=== PATIENT | female | born 1980 | race Two or more races ===

== ENCOUNTER 2020-06-02 09:35 | Emergency (ER) | payer SELFPAY ==
[~2020-06-02] VITALS: Ht 160 cm; Wt 63.5 kg
--- NOTE | 2020-06-02 09:37 | NUR ---
Gladys higuera in [facility] - 06/02/20 at 1035 by JEREMIAH Pt moved to room 3.
--- NOTE | 2020-06-02 09:40 | NUR ---
Pt was triaged and is sitting in a chair in the ER hallway because there are no ER beds available. [employer] at side.
--- NOTE | 2020-06-02 10:27 | NUR ---
Pt was moved to room 3. [employer] left, pt is calm and cooperative at this time.
--- NOTE | 2020-06-02 10:35 | NUR ---
I spoke with the pt in room 3. Pt stated "I just want my heroin". Pt denied any SI or HI. States she has no medical problems and no medication allergies.
[2020-06-02 10:41] LABS: *AMPHETAMINE, URINE NEGATIVE (NEGATIVE); *CANNABINOID, URINE POSITIVE (NEGATIVE); *COCCAINE, URINE NEGATIVE (NEGATIVE); *OPIATE, URINE NEGATIVE (NEGATIVE); *PHENCYCLIDINE SCREEN,URINE NEGATIVE (NEGATIVE)
--- NOTE | 2020-06-02 10:45 | NUR ---
Pt refused blood draw, ERMD notified.
--- NOTE | 2020-06-02 10:53 | NUR ---
Pt walked out of the back door of ER, pt was brought back to ER room 3 and security is at bedside.
[2020-06-02] MEDS ORDERED: OLANZAPINE 10 MG VIAL IM ONE ×2 (11:00→11:05)
[2020-06-02] MEDS ORDERED: LORAZEPAM 2 MG/1 ML VIAL IM ONE (11:00)
--- NOTE | 2020-06-02 11:00 | NUR ---
Pt trying to leave, very loud and combative and attempting to hit staff.
[2020-06-02] MEDS ORDERED: LORAZEPAM 2 MG/1 ML VIAL ONE (11:06)
--- NOTE | 2020-06-02 11:22 | NUR ---
PT VERY AGITATED, YELLING, VERY LOUD VOUCE, SCREAMING.
--- NOTE | 2020-06-02 11:40 | NUR ---
Pt sleeping at this time, placed on cont pulse ox, NAD noted.
--- NOTE | 2020-06-02 13:00 | NUR ---
Pt sleeping with NAD noted.
--- NOTE | 2020-06-02 14:06 | NUR ---
SW attempted to see patient, but patient is not arousable at this time. SW will attempt again later.
--- NOTE | 2020-06-02 15:00 | NUR ---
Pt sleeping with NAD noted.
--- NOTE | 2020-06-02 16:45 | NUR ---
cheese factory worker attempted to eval pt but pt still sedated. Pt arousable to touch, asked for another blanket. Food and water given but pt went back to sleep. No acute distress noted.
--- NOTE | 2020-06-02 17:02 | NUR ---
4:50pm: SW attempted to meet with this patient again. Patient opened her eyes when this SW stated patient's name, but then slowly closed them again. SW attempted to engage patient in a conversation, but patient observed to be lethargic and unable to engage in a conversation with this SW. Patient mumbled a few words, but they were unclear and when SW asked patient to repeat what she stated, patient did not attempt again. Unable to complete assessment at this time. Director Allyn Humphrey informed of above.
--- NOTE | 2020-06-02 19:02 | NUR ---
Report given to Aakash SHER.
--- NOTE | 2020-06-02 19:45 | NUR ---
MATTHEW CALLED AND STATED PT IS CLEAR AND DOESNOT NEED TO BE PET EVALUATED. THAT THE PT CAN GO HOME ASOON SHE STABLE . EMILY SHER NOTIFIED.
--- NOTE | 2020-06-02 22:15 | NUR ---
PT A/O X3 AMBULATING W/O DIFF/TOOK ALL BELONGINGS. REFUSED TO SIGN ACI/ ACI/RX X1 GIVEN WITH A HOMELESS PACKET. REFUSED TO SIGN HOMELESS PACKET FORM.
[2020-06-02 22:22] VITALS: BP 105/69
== END 2020-06-02 22:15 | disposition home or self-care (01) ==
LOC: ER 09:35
DX: R45.851 Suicidal ideations (principal); F11.10 Opioid abuse, uncomplicated; Z59.0 Homelessness; R45.1 Restlessness and agitation
CPT/HCPCS: 80307; 96372 ×2; 99285; J2060; A4663; J2358

== ENCOUNTER 2020-11-28 15:25 | Emergency (ER) | payer SELFPAY ==
[~2020-11-28] VITALS: Ht 160 cm; Wt 63.5 kg
[2020-11-28] MEDS ORDERED: LORAZEPAM 2 MG/1 ML VIAL IV ONE (15:45)
[2020-11-28] MEDS ORDERED: IV NS 1000 ML 1,000 ML IV ONE (15:45)
--- NOTE | 2020-11-28 15:54 | NUR ---
Patient refused CT Head w/o Contrast @ 15:52
--- NOTE | 2020-11-28 16:00 | NUR ---
PT AT BEDSIDE.
[2020-11-28 16:01] LABS: HEMATOCRIT 45.6 % (31.2-41.9); MEAN CORPUSCULAR HEMOGLOBIN 32.8 uug (24.7-32.8); MEAN CORPUSCULAR VOLUME 99.3 fL (75.5-95.3); PLATELET COUNT (AUTO) 264 K/uL (179-408)
[2020-11-28 16:10] LABS: ETHANOL < 3 MG/DL (0-0)
[2020-11-28] MEDS ORDERED: LORAZEPAM 2 MG/1 ML VIAL ONE (16:11)
[2020-11-28 16:15] LABS: ACETAMINOPHEN 6.9 ug/mL (10-30); ALANINE AMINOTRANSFERASE 19 U/L (14-59); ALKALINE PHOSPHATASE 64 U/L (50-136); ASPARTATE AMINOTRANSFERASE 12 U/L (15-37); BILIRUBIN,DIRECT 0.1 mg/dL (0.0-0.2); BILIRUBIN,TOTAL 0.4 mg/dL (0.2-1.0); CARBON DIOXIDE 21 mmol/L (21-32); CHLORIDE 106 mmol/L (98-107); CREATININE 0.7 mg/dL (0.6-1.3); GLUCOSE 82 mg/dL (74-106); POTASSIUM 3.6 mmol/L (3.5-5.1); UREA NITROGEN, BLOOD 17 mg/dL (7-18)
[2020-11-28 16:30] LABS: THYROID STIMULATING HORMONE 1.738 mIU/mL (0.358-3.740)
[2020-11-28 18:03] LABS: *BLOOD, URINE NEGATIVE (NEGATIVE); *CLARITY,URINE SLIGHTLY CLOUDY (CLEAR); *COLOR,URINE YELLOW (YELLOW); *KETONES,URINE 2+ (NEGATIVE); *UROBILINOGEN,URINE 0.2 E.U./dl (NORMAL); LEUKOCYTE ESTERASE ,URINE TRACE (NEGATIVE); NITRITE, URINE NEGATIVE (NEGATIVE); UGLUCOSE NEGATIVE (NEGATIVE)
[2020-11-28 18:08] LABS: *BILIRUBIN,URIN 1+ (NEGATIVE)
--- NOTE | 2020-11-28 18:09 | NUR ---
called katharina soto. pt yelling, talking bizzarre, trying to leave the room, pt in the room. pt says that this kind of behavior happened before when the pt "was under influence".
[2020-11-28 18:10] LABS: *AMPHETAMINE, URINE NEGATIVE (NEGATIVE); *CANNABINOID, URINE POSITIVE (NEGATIVE); *COCCAINE, URINE NEGATIVE (NEGATIVE); *OPIATE, URINE NEGATIVE (NEGATIVE); *PHENCYCLIDINE SCREEN,URINE NEGATIVE (NEGATIVE)
[2020-11-28 18:11] LABS: BACTERIA,URINE FEW /HPF (NONE SEEN); MUCUS,URINE MANY /LPF (0-FEW); SQUAMOUS EPITHELIAL CELL,UR MANY /HPF (NONE SEEN); URINE AMORPHOUS PHOSPHATES FEW /HPF; WBC,URINE 20-50 /HPF (0-3)
[2020-11-28] MEDS ORDERED: HALOPERIDOL LACTATE 5 MG/1 ML VIAL ONE (18:11)
[2020-11-28] MEDS ORDERED: HALOPERIDOL LACTATE 5 MG/1 ML VIAL IM ONE (18:15)
--- NOTE | 2020-11-28 18:21 | NUR ---
patient not stable to come down stairs @ 18:[address] w/o contrast
--- NOTE | 2020-11-28 19:14 | NUR ---
pt resting, no sign of distress at this point, pt at bedside.
--- NOTE | 2020-11-28 19:19 | NUR ---
Assumed care of patient. Patient off restraints at this time. She is asleep, no acute distress noted. Per ER MD, patient is holdable and will not be allowed to leave the facility. Pending Psych Eval.
--- NOTE | 2020-11-28 19:26 | NUR ---
Called Cardiology Consultant for a sitter, no sitter available. Called Security, stated that they can only do temporary standby and not for a prolonged period. Pt is sleeping, off restraints, no acute signs of distress, at bedside.
--- NOTE | 2020-11-28 19:26 | NUR ---
Spoke to warehouse sorter, notified her that this patient is a flight risk and security is only able to do a temporary stand by. shift supervisor melting states there is not sitter. States " the whole hospital is short". I notified her that earlier the facility needed to be locked down because of this patients behavioral outburst and that she is a risk to staff/self and is deemed holdable by the ER MD at this time. The warehouse sorter Clover Hernandez states " We are just going to have to call the police if she elopes". I notfied her of possible liability issues. Will awaiting further action by warehouse sorter.
--- NOTE | 2020-11-28 19:31 | NUR ---
Security requested for increased frequency of rounding , every 30-40 minutes.
--- NOTE | 2020-11-28 19:35 | NUR ---
Visitor Nazario states " I am her Ex , we just havent done the paperwork yet". Visitor states he is available to metal pickling equipment operator the patient in the event she is discharge. Please contact Nazario at [phone]
--- NOTE | 2020-11-28 20:08 | NUR ---
PATIENT UNABLE TO PROCEED WITH CT HEAD @ 20:08
--- NOTE | 2020-11-28 20:48 | NUR ---
Hold off CT Head w/o, wait for RN to call @ 20:45
--- NOTE | 2020-11-28 21:09 | NUR ---
Patient in bed, no acute distress noted. All patient needs attended and met. Call light is within reach.
--- NOTE | 2020-11-28 21:44 | NUR ---
Patient continues directly observed, no acute distress noted. Asleep at this time.
--- NOTE | 2020-11-28 21:55 | NUR ---
Patient asleep, VSS. All patient needs anticipate and met, blanket provided.
--- NOTE | 2020-11-28 22:40 | NUR ---
Patient in bed, resting. no acute distress noted.
--- NOTE | 2020-11-28 23:06 | NUR ---
Patient no longer indicated for CT scan at this time. Per Dr Meneses instructions, I notified radiology and orders will be cancelled.
--- NOTE | 2020-11-28 23:36 | NUR ---
Tallow Maker will pull sitter out due to low census at this time, staff will monitor patient.
--- NOTE | 2020-11-28 23:57 | NUR ---
Patient becoming increasingly agitated, screaming, kicking feet while in the bed. ER MD aware, orders noted and carried out. Observation continues.
--- NOTE | 2020-11-29 00:10 | NUR ---
Patient screaming, flailing in bed, kicking her legs and endorsing that she wants to elope from the facility. ER MD aware, awaiting for administered medication to take effect. Direct observation ongoing. Therapeutic environment implemented, quiet location.
--- NOTE | 2020-11-29 00:28 | NUR ---
Patient continues to scream at this time. VSS, patient is in no acute distress.
[2020-11-29] MEDS ORDERED: diphenhydrAMINE 50 MG/1 ML VIAL IV ONE ×2 (00:30)
[2020-11-29] MEDS ORDERED: LORAZEPAM 2 MG/1 ML VIAL IV ONE ×2 (00:30)
[2020-11-29] MEDS: HALOPERIDOL LACTATE 5 MG/1 ML VIAL IV ONE ×2 (00:45→05:14)
[2020-11-29] MEDS ORDERED: HALOPERIDOL LACTATE 5 MG/1 ML VIAL IV ONE ×2 (00:45)
--- NOTE | 2020-11-29 00:45 | NUR ---
Patient medicated with additional dose of Haldol due to patient exhibiting agitated behavior, screaming, kicking feet, attempting to get out of bed. Patient was provided with water and offered food, a food tray was placed at bedside. Direct observation ongoing. Therapeutic environment in place, verbal de-escalation attempted without effect.
[2020-11-29] MEDS ORDERED: HALOPERIDOL LACTATE 5 MG/1 ML VIAL ONE ×3 (00:47→05:14)
--- NOTE | 2020-11-29 00:47 | NUR ---
Patient noted in NSR on cafeteria monitor, no QT abnormalities/changes on cardiac strip.
--- NOTE | 2020-11-29 01:06 | NUR ---
Patient removed her pulse ox/motor equipment captain. Pulse ox/motor equipment captain replaced.
--- NOTE | 2020-11-29 01:34 | NUR ---
Patient in bed, no acute distress. Resting in bed, respirations even and unlabored. no cardiovascular distress. NSR on metal fabricating supervisor. Sao2 @98%
--- NOTE | 2020-11-29 02:00 | NUR ---
Patient remains in bed, offered assistance to restroom but it was denies by the patient. Patient given water at this time. She is currently calm, but has bouts of screaming and kicking/flailing in bed.
--- NOTE | 2020-11-29 02:30 | NUR ---
Patient in bed, no acute distress noted. All patient needs attended and met. Call light is within reach. VSS
--- NOTE | 2020-11-29 03:21 | NUR ---
Patient resting in bed, no acute distress noted. Respirations even and unlabored. No cardiovascular distress noted. All patient needs attended and met. Call light is within reach. Direct observation ongoing. Patient denies SI/HI/AH/VH at this time.
[2020-11-29] MEDS ORDERED: diphenhydrAMINE 50 MG/1 ML VIAL ONE ×2 (05:14)
--- NOTE | 2020-11-29 05:14 | NUR ---
Patient is kicking in bed, screaming, agitated. Attempting to remove IV, removed compressor operator portable. ER MD aware, PRN to be given.
[2020-11-29] MEDS ORDERED: LORAZEPAM 2 MG/1 ML VIAL ONE ×2 (05:15)
--- NOTE | 2020-11-29 05:15 | NUR ---
Note undone in [facility] - 11/29/20 at 0530 by UJ Patient in bed, no acute distress noted. VSS. All patient needs attended and met. Call light is within reach. Addendum: 11/29/20 at 0529 by JU Amendment undone in [facility] - 11/29/20 at 0530 by JU Patient is kicking in bed, screaming, agitated. Attempting to remove IV, removed cardiac rn. ER aware, PRN to be given.
--- NOTE | 2020-11-29 05:28 | NUR ---
Patient provided with blankets and water. patient attempted to pull out PIV, it was re-dressed and secured with tape/koban. Well tolerate by patient. Verbal reinforcement and education provided.
--- NOTE | 2020-11-29 06:53 | NUR ---
Patient in bed, no acute distress noted. VSS
--- NOTE | 2020-11-29 07:10 | NUR ---
Report to Rell SHER
--- NOTE | 2020-11-29 07:11 | NUR ---
Sld Educational Aide assumes care: received patient sleeping, easily arousable by touch, opens eyes but non-verbal@this time, moves all extremities, her respiration:easy, symmetrical & nonlabored, pending soberiety from street-drug/substance abuse then ER psych evaluation per Dr Nieves, maintained on continuous SpO2 monitor. Comfort & safety measures maintained.
--- NOTE | 2020-11-29 08:57 | NUR ---
Pt is awake, alert and oriented x 3 with ex- at bedside. Pt is calm and cooperative and states she is hungry, breakfast tray provided for pt. Pt was eval by . Called Amparo for psych eval per order, there was no answer and an urgent message was left.
--- NOTE | 2020-11-29 09:14 | NUR ---
Received telephone call from states DHIRAJ Christensen 1hr.
--- NOTE | 2020-11-29 09:20 | NUR ---
Patient is eating breakfast with good appetite.
--- NOTE | 2020-11-29 09:23 | NUR ---
Patient is denies SI or HI, calm, cooperative@this time.
--- NOTE | 2020-11-29 10:26 | NUR ---
Patient is resting comfortably on gurney with eyes closed, pending psych field crop harvest worker's arrival@this time.
--- NOTE | 2020-11-29 11:33 | NUR ---
Psych maintenance worker/RN mAparo is here & is now evaluating this patient.
--- NOTE | 2020-11-29 12:11 | NUR ---
Patient's visitor claims that this patient's ID was taken for safety >20 hours ago. ER registration staff Ale was notified.
--- NOTE | 2020-11-29 12:15 | NUR ---
ID was found by charge aide Jesse and handed to patient and spouse(?), pending discharge papers@this time
--- NOTE | 2020-11-29 12:33 | NUR ---
Patient ambulated to bathroom with steady gait, pending written discharge papers from Dr Nieves.
--- NOTE | 2020-11-29 12:44 | NUR ---
Patient and spouse left ER before discharge papers were created by vitaliy HERNANDEZ? Dr Nieves was notified.
--- NOTE | 2020-11-29 12:49 | NUR ---
1238pm: Patient and spouse were given copies for behavioral mental health referrals by CHRISTOS Christensen. Patient is not eligible for 5150 psych HOLD per turntable worker CHRISTOS Christensen. Patient is now for discharged to home. Verbal after care instructions were also given to patient and spouse by myself and CHRISTOS Christensen. Patient & spouse verbalized understanding and compliance of instructions. Stressed follow up psych mental health centers or return to ER for worsening s/s 1240pm: Patient and spouse left ER before written / discharge papers were given to patient. Eloped?
== END 2020-11-29 12:38 | disposition home or self-care (01) ==
LOC: ER 15:25
DX: F23 Brief psychotic disorder (principal); Z20.822 Contact with and (suspected) exposure to COVID-19; Z91.5 Personal history of self-harm; F15.10 Other stimulant abuse, uncomplicated
CPT/HCPCS: 36415; 70450; 80048; 80076; 80299; 80307; 80320; 81001; 82140; 82550; 84443; 84484; 84702; 85025; 87086; 87426; 93005; 96361; 96374; 96375; 96376 ×2; 99285; J1200 ×2; J1630 ×4; J2060 ×3; 70030-TC; A4663; C1758; G0480; J7030